=== PATIENT | male | born 2000 | race Caucasian/White ===

== ENCOUNTER 2020-12-25 16:02 | Emergency (ER) | payer OTHER ==
[~2020-12-25] VITALS: Ht 177.8 cm; Wt 147.0 kg
[2020-12-25 16:10] VITALS: Ht 177.8 cm; Wt 147.0 kg
[2020-12-25] MEDS ORDERED: IBU600 M2 PO (16:42)
[2020-12-25] MEDS ORDERED: KEF500 PO (16:42)
[2020-12-25 16:55] VITALS: BP 145/62
== END 2020-12-25 16:55 | disposition home or self-care (01) ==
LOC: ED 16:02
DX: L60.0 Ingrowing nail (principal)